=== PATIENT | male | born 1940 | race Caucasian/White ===

== ENCOUNTER 2016-12-29 13:45 | Emergency (ER) | payer MEDICARE, OTHER ==
--- NOTE | 2016-12-29 14:04 | ED.PDOC ---
History of Present Illness - General Chief Complaint: GI Problem Stated Complaint: feeding tube replacement Time Seen by Provider: 12/29/16 14:02 Source: patient Exam Limitations: no limitations - History of Present Illness Initial Comments: Patient presents after his feeding tube came at one hour ago. 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 He has had it for 6 months. No other complaints. Timing/Duration: 1 hour Severity: mild Improving Factors: nothing Worsening Factors: nothing Associated Symptoms: denies symptoms Allergies/Adverse Reactions: Allergies Sulfa Antibiotics Allergy (Verified 12/29/16 14:06) Review of Systems - Review of Systems Constitutional: States: no symptoms reported EENTM: States: no symptoms reported Respiratory: States: no symptoms reported Cardiology: States: no symptoms reported Gastrointestinal/Abdominal: States: see HPI Genitourinary: States: no symptoms reported Musculoskeletal: States: no symptoms reported Skin: States: no symptoms reported Neurological: States: no symptoms reported Endocrine: States: no symptoms reported Hematologic/Lymphatic: States: no symptoms reported Family Medical History - Family History Mother Family History: Unknown Physical Exam - Physical Exam General Appearance: Alert Respiratory: lungs clear Cardiovascular/Chest: regular rate, rhythm Gastrointestinal/Abdominal: other - Surgical opening where PEG tube was. No purulence nor bleeding. Progress - Progress Progress: 12/29/16 14:39 Dr. Reynolds was contacted and he came and replaced the feeding tube. See his note. Departure - Departure Clinical Impression: Feeding tube dysfunction Disposition: Discharge to Home or Self Care Condition: Good Departure Forms: ED Discharge - Pt. Copy, Patient Portal Self Enrollment Diet: resume usual diet Activity: increase activity as tolerated Referrals: ZEB PERKINS [Primary Care Provider] - 1-2 Weeks
[2016-12-29 14:07] VITALS: TEMP 98.4; O2SAT 99
--- NOTE | 2016-12-29 14:49 | CONS ---
DATE OF CONSULTATION: 12/29/16 HISTORY OF PRESENT ILLNESS: The patient is a 76-year-old male who is status post head and neck surgery and has a gastrostomy feeding tube that was placed percutaneously. He was doing better with eating, but he has just recently had removal of his plate in the left mandibular area and is not longer able to eat. Today, his feeding tube fell out and he presented to the Emergency Room for care. REVIEW OF SYSTEMS: Unremarkable. PHYSICAL EXAMINATION: GENERAL: The patient is awake, alert, cooperative, in no acute distress. ABDOMEN: Soft and benign. There is a feeding gastrostomy tube in the left upper quadrant with granulation tissue. No mass, no drainage, no tenderness. ASSESSMENT: 1. Gastrostomy tube failure due to ruptured balloon. PLAN: The plan is to replace the tube with an 18 [place] CAITLIN G-tube. [facility][id number] [facility]
[2016-12-29 14:50] VITALS: BP 176/83
--- NOTE | 2016-12-29 14:57 | OP ---
DATE OF PROCEDURE: 12/29/16 PREOPERATIVE DIAGNOSIS: 1. Gastrostomy tube failure. POSTOPERATIVE DIAGNOSIS: 1. Gastrostomy tube failure. PROCEDURE: 1. Replacement of gastrostomy feeding tube. SURGEON: Bill Reynolds MD. DIRECTOR REGULATORY AGENCY: None. ANESTHESIA: None. INDICATION: The patient is a 76-year-old male status post head and neck surgery with a G-tube as he is unable to feed completely due to surgery on his neck and mandible. His feeding tube fell out this morning and he presented to the Emergency Room. After discussion, the plan is to replace his feeding tube. FINDINGS: The 18 [place] feeding tube was advance without significant difficulty and aspirated gastric juice. PROCEDURE: The patient was placed in supine position. The left upper quadrant stoma site was prepped with Betadine, then a sterile cotton tipped swab was introduced without difficulty and then a second was placed to stretch the lumen slightly and then after the G-tube had its balloon tested, it was advanced with lubricant into the stomach. The balloon was inflated and pulled up against the abdominal wall and the fixture device was advanced appropriately. 10 cc of saline were introduced and aspirated with gastric contents noted. The patient tolerated the procedure well and will be discharged from the Emergency Room with no medications. He will followup with his routine physicians. #[id number] [facility]
== END 2016-12-29 14:51 | disposition home or self-care (01) ==
LOC: ER 13:45
DX: Z43.1 Encounter for attention to gastrostomy (principal); C76.0 Malignant neoplasm of head, face and neck